=== PATIENT | female | born 1990 | race Caucasian/White ===

== ENCOUNTER 2019-09-17 00:36 | Emergency (ER) | payer BC, MEDICAID ==
[2019-09-17] MEDS ORDERED: AMOXICILLIN TRIHYDRATE 500 MG CAPSULE PO ONE (06:48)
[2019-09-17] MEDS ORDERED: HYDROCODONE/ACETAMINOPHEN 5-325 MG TABLET PO ONE (06:49)
[2019-09-17] MEDS ORDERED: HYDROCODONE/ACETAMINOPHEN 5-325 MG (6 TAB/ER DISP) PO PRN (06:49)
[2019-09-17 07:11] VITALS: BP 115/80
--- NOTE | 2019-09-17 16:02 | ER Document Report ---
Entered by MARIA E IZAGUIRRE SCRIBE 09/17/19 0642 Acting as scribe for:CINTIA COFFMAN MD ED Oral Problem - General Chief Complaint: Toothache Stated Complaint: MOUTH PAIN/FACIAL SWELLING Time Seen by Provider: 09/17/19 05:38 Primary Care Provider: EDDA KIRBY NP [Primary Care Provider] - Follow up as needed Mode of Arrival: Ambulatory Information source: Patient, [facility] Records Notes: This 28-year-old female patient comes emergency room with toothache and swelling to the face that started last night. In May she had a broken tooth, treated with amoxicillin and referred to oral surgeon. Had no insurance so has not followed up. She states her insurance will start in September and she is going to follow-up with her dentist for another referral. No history of fevers. - Related Data Allergies/Adverse Reactions: No Known Allergies Allergy (Verified 02/22/13 16:53) Past Medical History - General Information source: Patient - Social History Smoking Status: Current Every Day Smoker Cigarette use (# per day): Yes Chew tobacco use (# tins/day): No Frequency of alcohol use: None Drug Abuse: None Lives with: Family Family History: Reviewed & Not Pertinent, DM, Hyperlipidemia, Hypertension, Malignancy Patient has homicidal ideation: No Musculoskeletal Medical History: Reports Hx Musculoskeletal Deformity, Reports Hx Musculoskeletal Trauma - Neck Fx at age 9 Past Surgical History: Reports: Hx Kidney (Renal Surgery) - as a child for reflux, Hx Orthopedic Surgery - cervical fusion for neck fx at age 9 - Immunizations Immunizations up to date: Yes Hx Diphtheria, Pertussis, Tetanus Vaccination: Yes Review of Systems - Review of Systems Constitutional: No symptoms reported EENT: See HPI, Mouth swelling, Dental problem Cardiovascular: No symptoms reported Respiratory: No symptoms reported Gastrointestinal: No symptoms reported Genitourinary: No symptoms reported Female Genitourinary: No symptoms reported Musculoskeletal: No symptoms reported Skin: No symptoms reported Hematologic/Lymphatic: No symptoms reported Neurological/Psychological: No symptoms reported -: Yes All other systems reviewed and negative Physical Exam - Vital signs Vitals: Temp Pulse Resp BP Pulse Ox 98.7 F 65 14 139/106 H 100 09/17/19 01:03 09/17/19 01:03 09/17/19 01:03 09/17/19 01:03 09/17/19 01:03 - Notes Notes: Physical Exam: General: Alert, appears well. HEENT: Normocephalic. Atraumatic. PERRLA. Extraocular movements intact. Oropharynx clear. Left upper second molar there is a small portion of the posterior aspect absent that is covered with fixed tooth. This area is tender with palpation. There is no gum swelling. No submandibular swelling. Neck: Supple. Respiratory: No respiratory distress. Abdominal: Normal Inspection. No distension. Extremities: Moves all four extremities. Neurological: Normal cognition. AAOx4. Normal speech. Psychological: Normal affect. Normal Mood. Skin: Warm. Dry. Normal color. Course - Vital Signs Vital signs: Temp Pulse Resp BP Pulse Ox 98.2 F 76 16 109/71 99 09/17/19 05:30 09/17/19 05:30 09/17/19 05:30 09/17/19 05:30 09/17/19 05:30 Discharge - Discharge Clinical Impression: Tooth ache Disposition: HOME, SELF-CARE Additional Instructions: Toothache Your pain is due to dental decay. The tooth must be repaired in order for you to feel better. You will, therefore, be referred to a dentist. Severe swelling or drainage around a tooth usually means a deep dental abscess. This also requires evaluation and treatment by the dentist, but antibiotics may be prescribed while awaiting dental treatment. You should be rechecked immediately if you develop major swelling of the face, increasing pain, a lump in the jaw or gums, headache, or fever. Take the medications as prescribed. Take ibuprofen 600 mg every 8 hours. Follow-up with your dentist if not improving. RETURN TO THE EMERGENCY ROOM IF ANY NEW OR WORSENING SYMPTOMS. Prescriptions: Amoxicillin 875 mg PO BID #20 tablet Referrals: EDDA KIRBY NP [Primary Care Provider] - Follow up as needed I personally performed the services described in the documentation, reviewed and edited the documentation which was dictated to the scribe in my presence, and it accurately records my words and actions.
== END 2019-09-17 07:11 | disposition home or self-care (01) ==
LOC: ER 00:36
DX: K08.89 Other specified disorders of teeth and supporting structures (principal); R22.0 Localized swelling, mass and lump, head; F17.210 Nicotine dependence, cigarettes, uncomplicated
CPT/HCPCS: 99282